=== PATIENT | female | born 1950 | race African-American/Black ===

== ENCOUNTER 2018-12-29 13:48 | Outpatient (CLI) | payer MEDICARE, MEDICAID ==
--- NOTE | 2018-12-29 15:03 | BD ---
EXAM: DEXA bone density examination HISTORY: 68-year-old postmenopausal female for screening COMPARISON: 09/20/2013 FINDINGS: L1--bone mineral density 0.904 g/sq cm; T score -0.8 L2--bone mineral density 1.142 g/sq cm; T score 1.0 L3--bone mineral density 1.036 g/sq cm; T score -0.4 L4--bone mineral density 1.107 g/sq cm; T score 0.4 Total L1-L4--bone mineral density 1.042 g/sq cm; T score 0.0 Left femoral neck--bone mineral density0.914; T score 0.6 Total proximal left femur--bone mineral density 1.184; T score 2.0 IMPRESSION: Normal bone mineral density. Direct comparison with the prior study cannot be performed g iven dissimilar scan types.
--- NOTE | 2019-01-03 17:55 | MMO ---
Bilateral MAMMO Bilat Screen [facility]. CLINICAL HISTORY: Patient is 68 years old and is seen for screening. The patient has a history of right Ultrasound Guided Core Biopsy at age 47 - benign. VIEWS: The views performed were: bilateral craniocaudal with tomosynthesis and bilateral mediolateral oblique with tomosynthesis. FILMS COMPARED: The present examination has been compared to prior imaging studies performed at [facility] on 03/18/2011, 09/19/2013 and 01/10/2016. MAMMOGRAM FINDINGS: There are scattered fibroglandular densities. There are no suspicious masses, suspicious calcifications, or new areas of architectural distortion. IMPRESSION: THERE IS NO MAMMOGRAPHIC EVIDENCE OF MALIGNANCY. A ROUTINE FOLLOW-UP MAMMOGRAM IN 1 YEAR IS RECOMMENDED. THE RESULTS OF THIS EXAM WERE SENT TO THE PATIENT. ACR BI-RADS Category 1 - Negative MAMMOGRAPHY NOTE: 1. A negative mammogram report should not delay a biopsy if a dominant of clinically suspicious mass is present. 2. Approximately 10% to 15% of breast cancers are not detected by mammography. 3. Adenosis and dense breasts may obscure an underlying neoplasm.
== END 2018-12-29 13:49 | disposition home or self-care (01) ==
LOC: BICMAMMO 13:48
PROVIDERS: ATTEND Family Medicine
DX: Z12.31 Encounter for screening mammogram for malignant neoplasm of breast (principal); Z13.820 Encounter for screening for osteoporosis; E89.40 Asymptomatic postprocedural ovarian failure
CPT/HCPCS: 77063; 77067; 77080

== ENCOUNTER 2020-07-23 12:16 | Outpatient (CLI) | payer MEDICARE, MEDICAID ==
[~2020-07-23 12:16] MED LIST: Magnevist 469MG/ML 20 ML VIAL ONE
--- NOTE | 2020-07-23 14:17 | MRI ---
MRI ABDOMEN WITH AND WITHOUT IV CONTRAST: HISTORY: Liver mass right lobe. FINDINGS: Correlation is made with the CT abdomen and pelvis dated 07/15/2020. There are multiple heterogeneously enhancing masses in the right lobe of the liver with T2 hyperinten sity. The largest of these measures 7.45 cm. Liver, spleen, pancreas, adrenal glands, and kidneys a ppear normal. No gallstones are seen. No free fluid or lymphadenopathy is identified. The aorta is of normal caliber. Bone marrow signal is normal. IMPRESSION: Multiple hepatic masses are suspicious for malignancy/metastatic disease. POS: [facility]
== END 2020-07-23 12:17 | disposition home or self-care (01) ==
LOC: BICMRI 12:16
PROVIDERS: ATTEND Family Medicine
DX: R16.0 Hepatomegaly, not elsewhere classified (principal)
CPT/HCPCS: 74183; A9579

== ENCOUNTER 2020-08-31 08:31 | Outpatient (CLI) | payer MEDICARE, MEDICAID ==
--- NOTE | 2020-08-31 10:09 | CT ---
CT CHEST WITH CONTRAST CLINICAL INDICATION: Intrahepatic bile duct carcinoma. COMPARISON: CTA chest on 07/15/2020 FINDINGS: Aorta: Minimal vascular calcifications present. Lungs: Clear without evidence of consolidation or pleural effusion. There is a pleural-based pulmonar y nodule seen in the superior segment right lower lobe which abuts the major fissure. This is best seen on coronal imaging. Minimal atelectasis is seen at the medial aspect right lower lobe. There is linear density and slight pleural based nodularity involving the most superior aspect superior segment right lower lobe which may represent minimal pleural and parenchymal scarring. No pleural effusion is seen. Mediastinum: Trace pericardial effusion is present. The heart remains mildly enlarged. No enlarged mediastinal or hilar lymph nodes are seen by CT size criteria. Thyroid gland: Limited visualized thyroid gland has a normal CT appearance. Osseous structures: Midline defect is seen involving the posterior elements C7 vertebral body which i s developmental in origin. Mild degenerative changes are seen in the spine. No suspicious lytic or sclerotic osseous lesions are identified. Chest wall: No abnormality visualized. Upper abdomen: Multiple heterogeneously enhancing masses are again seen involving the right hepatic l obe conglomeration of mass is present largest mass measures approximately 8.1 cm. There is mild dilatation of a few hepatic lobe bile ducts. Portal vein does appear patent on this exam. No enlarged lymph nodes are seen within the visualized imaged upper abdomen. Small hiatal hernia is present. IMPRESSION: 1. Multiple heterogeneously enhancing masses occupying right hepatic lobe with largest heterogeneous mass measuring approximately 8.1 cm. Finding was previously evaluated with MRI abdomen on 07/23/2020. 2. Single pulmonary nodule superocentrally right lower lobe measuring 6 mm. Follow-up evaluation in 4 months is recommended. 3. Mild cardiomegaly with trace pericardial effusion. 4. Very small hiatal hernia.
[2020-08-31] MEDS ORDERED: Iopamidol 370 76% 100 ML VIAL ONE (11:47)
--- NOTE | 2020-08-31 12:27 | NM ---
WHOLE BODY BONE SCAN: HISTORY: History of intrahepatic bile duct carcinoma RADIOPHARMACEUTICAL: 32.80 mCi technetium 99m-MDP injected intravenously COMPARISON:CTA of the chest dated 07/15/[address] the abdomen and pelvis dated 07/25/2020. Comparison s are also made with a CT of the chest dated August 31, 2020 at 8:53 AM CORRELATION: None FINDINGS: There is degenerative activity involving the sternoclavicular joints, AC joints, thoracic and lumbar spine, SI joints and both hips. There is urinary activity involving the kidneys and bladder. Mild amount of urinary contamination seen in the perineal region. There are photopenic defects at the leve l of the knees consistent with bilateral total knee prostheses. No suspicious scintigraphic evidence for osteoblastic metastatic disease is evident. IMPRESSION: No scintigraphic evidence of osseous metastatic disease.
== END 2020-08-31 08:32 | disposition home or self-care (01) ==
LOC: CT 08:31
PROVIDERS: ATTEND Internal Medicine Hematology & Oncology
DX: C22.1 Intrahepatic bile duct carcinoma (principal); K76.9 Liver disease, unspecified; I51.7 Cardiomegaly; R91.1 Solitary pulmonary nodule; K44.9 Diaphragmatic hernia without obstruction or gangrene
CPT/HCPCS: 71260; 78306; A9503; Q9967

== ENCOUNTER 2020-11-01 15:22 | Outpatient (CLI) | payer MEDICARE, MEDICAID ==
[2020-07-31 02:36] LABS: SARS-CoV-2 PCR by NAA Indeterminate (NotDetected)
[2020-08-01 05:09] LABS: SARS-CoV-2 PCR by NAA DETECTED (NotDetected)
[2020-11-01 16:19] LABS: Anion Gap 16 mmol/L (10-20); BUN (Urea Nitrogen) 9 mg/dL (9.8-20.1); Calc. Creatinine Clearance 0 mL/min (70-130); Calcium 8.1 mg/dL (7.8-10.44); Carbon Dioxide 26 mmol/L (23-31); Chloride 102 mmol/L (98-107); Glucose 84 mg/dL (80-115); Sodium 141 mmol/L (136-145)
[2020-11-01 16:47] LABS: Potassium 2.9 mmol/L (3.5-5.1)
[2020-11-01 18:17] LABS: Hemoglobin 7.7 g/dL (12.0-15.5); Mean Corpuscular Hemoglobin 29.2 pg (27.0-33.0); Mean Corpuscular Volume 88.3 fl (81.6-98.3); Mean Platelet Volume 10.8 fl (7.4-10.4); Platelet Count 40 10x3/uL (150-450); RBC Distribution Width 17.4 % (11.5-14.5); Red Blood Cell (RBC) Count 2.64 10x6/uL (3.90-5.03); White Blood Cell (WBC) Count 14.6 10x3/uL (3.5-10.5)
[2020-11-01 18:32] LABS: Band 10 % (5-11); Lymphocytes 25 % (21-51); Monocytes 4 % (0-10); Neutrophil 61 % (42-75)
[2020-11-01 18:34] LABS: Hypochromia MODERATE=16-30 cells (100X) (0-5/hpf)
[2020-11-01 18:35] LABS: Microcytosis SLIGHT = 6-15 cells (100X) (0-5/hpf)
[2020-11-01 18:36] LABS: Platelet Morphology Comment Appears Decreased
[2020-11-02 01:49] LABS: SARS-CoV-2 PCR by NAA Not Detected (NotDetected)
== END 2020-11-01 15:23 | disposition home or self-care (01) ==
LOC: LABBT 15:22
PROVIDERS: ATTEND Specialist
DX: U07.1 COVID-19 (principal); Z01.818 Encounter for other preprocedural examination; C22.9 Malignant neoplasm of liver, not specified as primary or secondary
CPT/HCPCS: U0003 ×2; U0005 ×2; 80048; 85025; 87635; 93005; 93010

== ENCOUNTER 2020-11-06 08:19 | Day surgery (SDC) | payer MEDICARE, MEDICAID ==
[2020-11-05 13:03] VITALS: BMI 35.5
[2020-11-06] MEDS ORDERED: Acetaminophen 500 MG TAB ONE (09:01)
[2020-11-06] MEDS ORDERED: Ketorolac Tromethamine 30 MG/ML VIAL ONE (09:01)
[2020-11-06 09:02] LABS: Potassium 3.3 mmol/L (3.5-5.1)
[2020-11-06] MEDS ORDERED: Bupivacaine 0.25% HCL 30 ML VIAL ONE (09:37)
[2020-11-06] MEDS ORDERED: Lidocaine 1% w/Epinephrine 1:100K 20 ML VIAL ONE (09:37)
[2020-11-06] MEDS ORDERED: Fentanyl 100 MCG/2 ML VIAL ONE (09:39)
[2020-11-06] MEDS ORDERED: Lidocaine 1% PF 5 ML VIAL ONE (10:00)
[2020-11-06] MEDS ORDERED: PROPOFOL 200 MG/20 ML VIAL ONE (10:00)
[2020-11-06] MEDS ORDERED: PROPOFOL 20 ML ONE (10:24)
[2020-11-06] MEDS ORDERED: Propofol 500 MG/50 ML VIAL ONE (10:24)
== END 2020-11-06 12:00 | disposition home or self-care (01) ==
LOC: SDC 08:19
PROVIDERS: ATTEND Specialist
PROC: 02HV33Z Insertion of Infusion Device into Superior Vena Cava, Percutaneous Approach (ICD-10-PCS; principal; 2020-11-06)
DX: C22.1 Intrahepatic bile duct carcinoma (principal); I10 Essential (primary) hypertension; I25.10 Atherosclerotic heart disease of native coronary artery without angina pectoris; E11.9 Type 2 diabetes mellitus without complications; K21.9 Gastro-esophageal reflux disease without esophagitis; M19.90 Unspecified osteoarthritis, unspecified site; Z79.82 Long term (current) use of aspirin; Z79.84 Long term (current) use of oral hypoglycemic drugs; Z79.899 Other long term (current) drug therapy
CPT/HCPCS: 36561; 71045; 84132; C1788; 36415; J0690; J1642; J1885; J2704; J3010; S0020

== ENCOUNTER 2020-11-07 08:20 | Outpatient (CLI) | payer MEDICARE, MEDICAID ==
[2020-11-07] MEDS ORDERED: Iopamidol-370 76% 500 ML 1 ML ONE (14:49)
== END 2020-11-07 08:21 | disposition home or self-care (01) ==
LOC: BICCT 08:20
PROVIDERS: ATTEND Internal Medicine Hematology & Oncology
DX: C22.1 Intrahepatic bile duct carcinoma (principal)
CPT/HCPCS: 71260; 74177; 80053; 82248; 83615; 83735; 84100; 84550; 85025; Q9967

== ENCOUNTER 2020-11-16 08:15 | Day surgery (SDC) | payer MEDICARE, MEDICAID ==
[2020-11-16] MEDS ORDERED: diphenhydrAMINE 25 MG CAP PO SCH (09:00)
[2020-11-16] MEDS ORDERED: Acetaminophen 500 MG TAB PO SCH (09:00)
[2020-11-16] MEDS ORDERED: Sodium Chloride 0.9% 20 ML ONE ×2 (09:05→12:49)
[2020-11-16] MEDS ORDERED: Furosemide 20 MG/2 ML VIAL SLOW IVP SCH (12:45)
[2020-11-16 16:07] VITALS: TEMP 98.2
[2020-11-16] MEDS ORDERED: cloNIDine 0.2 MG TAB PO SCH (16:15)
[2020-11-16 16:43] VITALS: BP 183/82
== END 2020-11-16 16:44 | disposition home or self-care (01) ==
LOC: ONC/OP 08:15
PROVIDERS: ATTEND Internal Medicine Hematology & Oncology
PROC: 30233N1 Transfusion of Nonautologous Red Blood Cells into Peripheral Vein, Percutaneous Approach (ICD-10-PCS; principal; 2020-11-16)
DX: D64.9 Anemia, unspecified (principal); D69.6 Thrombocytopenia, unspecified
CPT/HCPCS: 36430; 86850; 86900; 86901; 96374; J1642; J1940; P9016; Q0163

== ENCOUNTER 2020-11-24 19:47 | Inpatient (IN) | payer MEDICARE, MEDICAID ==
[2020-11-24 20:36] LABS: ALT (SGPT) 10 U/L (8-55); AST (SGOT) 16 U/L (5-34); Alkaline Phosphatase 127 U/L (40-110); Anion Gap 22 mmol/L (10-20); BUN (Urea Nitrogen) 16 mg/dL (9.8-20.1); Bilirubin, Total 0.8 mg/dL (0.2-1.2); Calc. Creatinine Clearance 0 mL/min (70-130); Calcium 6.8 mg/dL (7.8-10.44); Carbon Dioxide 24 mmol/L (23-31); Chloride 94 mmol/L (98-107); Globulin 3.5 g/dL (2.4-3.5); Glucose 106 mg/dL (80-115); Lipase 23 U/L (8-78); Potassium 3.4 mmol/L (3.5-5.1); Protein, Total 7.5 g/dL (5.8-8.1); Sodium 137 mmol/L (136-145)
[2020-11-24 20:52] LABS: Hemoglobin 8.9 g/dL (12.0-16.0); Mean Corpuscular HGB CONC 34.3 g/dL (32.0-36.0); Mean Corpuscular Hemoglobin 31.9 pg (27.0-31.0); Mean Corpuscular Volume 92.8 fL (78.0-98.0); Mean Platelet Volume 11.3 fL (7.4-10.4); Platelet Count 24 thou/uL (130-400); RBC Distribution Width 15.5 % (11.5-14.5); Red Blood Cell (RBC) Count 2.78 mill/uL (4.20-5.40); White Blood Cell (WBC) Count 8.1 thou/uL (4.8-10.8)
[2020-11-24 20:56] LABS: Band 5 % (5-11); Lymphocytes 55 % (21-51); MDiff Complete? YES; Monocytes 12 % (0-10); Myelocyte 2 % (0-0); Neutrophil 26 % (42-75); Platelet Morphology Comment Appears Decreased
[2020-11-24 21:46] LABS: Bacteria/HPF None Seen HPF (None Seen); Bilirubin Negative (Negative); Blood, Urine Trace (Negative); Clarity Clear (Clear); Glucose, Urine (Dipstick) Normal (Negative); Ketone, Urine Negative (Negative); Leukocyte 250 Leu/uL (Negative); Nitrite Negative (Negative); Protein, Urine (Dipstick) 50 mg/dL (Neg-Trace); RBC/HPF 0-3 HPF (0-3); Squamous Epithelial 0-3 HPF (0-3); WBC/HPF Greater than 50 HPF (0-3); pH, Urine 5.5 (5.0-9.0)
[2020-11-24] MEDS ORDERED: Enoxaparin Sodium 100 MG/ML SYRINGE ONE (22:16)
[2020-11-24] MEDS ORDERED: cefTRIAXone\\ROCEPHIN 1 GM VIAL ONE (22:16)
[2020-11-24] MEDS ORDERED: Ondansetron PF 4 MG/2 ML Vial ONE (23:32)
[2020-11-25] MEDS ORDERED: HYDROcodone/Acetaminophen 5/325 mg Tablet PO PRN (00:36)
[2020-11-25] MEDS ORDERED: Bisacodyl 5 MG TAB PO PRN (00:36)
[2020-11-25] MEDS ORDERED: Acetaminophen 325 MG TAB PO PRN (00:36)
[2020-11-25] MEDS ORDERED: Zolpidem Tartrate 5 MG TAB PO PRN (00:36)
[2020-11-25 00:41] VITALS: BMI 42.8
[2020-11-25] MEDS ORDERED: HumaLOG 300 UNITS/3 ML VIAL SC PRN (00:43)
[2020-11-25] MEDS ORDERED: Ondansetron PF 4 MG/2 ML Vial IVP PRN ×2 (01:00→07:22)
[2020-11-25] MEDS ORDERED: Sodium Chloride 0.9% 1,000 ML IV SCH (01:00)
[2020-11-25] MEDS ORDERED: Ondansetron ODT 4 MG TAB SL PRN (01:00)
[2020-11-25 04:59] LABS: INR-International Normal Ratio 1.2
[2020-11-25 04:59] LABS: Hemoglobin 7.6 g/dL (12.0-16.0); Mean Corpuscular Hemoglobin 31.5 pg (27.0-31.0); Mean Corpuscular Volume 92.6 fL (78.0-98.0); Platelet Count 23 thou/uL (130-400); RBC Distribution Width 15.3 % (11.5-14.5); Red Blood Cell (RBC) Count 2.41 mill/uL (4.20-5.40); White Blood Cell (WBC) Count 8.3 thou/uL (4.8-10.8)
[2020-11-25 05:00] LABS: PTT 42.8 sec (22.9-36.1)
[2020-11-25 05:25] LABS: Band 12 % (5-11); Lymphocytes 37 % (21-51); MDiff Complete? YES; Metamyelocyte 2 % (0-0); Monocytes 20 % (0-10); Myelocyte 5 % (0-0); Neutrophil 24 % (42-75); Platelet Morphology Comment Appears Decreased
[2020-11-25] MEDS: hydrALAZINE 20 MG/ML VIAL SLOW IVP PRN ×2 (06:16→18:51)
[2020-11-25] MEDS ORDERED: Potassium Chloride 20 MEQ TAB PO SCH (07:15)
[2020-11-25 07:17] LABS: ALT (SGPT) Less than 7 U/L (8-55); AST (SGOT) 14 U/L (5-34); Albumin 3.2 g/dL (3.4-4.8); Alkaline Phosphatase 100 U/L (40-110); Anion Gap 14 mmol/L (10-20); BUN (Urea Nitrogen) 13 mg/dL (9.8-20.1); Bilirubin, Total 0.5 mg/dL (0.2-1.2); Calc. Creatinine Clearance 123 mL/min (70-130); Calcium 6.1 mg/dL (7.8-10.44); Carbon Dioxide 26 mmol/L (23-31); Chloride 100 mmol/L (98-107); Glucose 86 mg/dL (80-115); Protein, Total 6.2 g/dL (5.8-8.1); Sodium 137 mmol/L (136-145)
[2020-11-25] MEDS ORDERED: Ondansetron ODT 4 MG TAB PO PRN (07:22)
[2020-11-25] MEDS ORDERED: Metoclopramide HCl 10 MG/2 ML VIAL IVP PRN (07:22)
[2020-11-25] MEDS ORDERED: GUAIFENESIN SF SOLN 200 MG/10 ML UDCUP PO PRN (07:22)
[2020-11-25] MEDS ORDERED: Senokot S 8.6-50 MG TAB PO PRN (07:22)
[2020-11-25] MEDS ORDERED: Cepastat Lozenges 1 LOZ PO PRN (07:22)
[2020-11-25] MEDS ORDERED: Sodium Chloride 0.65% Nasal 44 ML BOT EA NARE PRN (07:22)
[2020-11-25] MEDS ORDERED: Loperamide HCl 2 MG CAP PO PRN (07:22)
[2020-11-25] MEDS ORDERED: diphenhydrAMINE 25 MG CAP PO PRN (07:22)
[2020-11-25] MEDS ORDERED: Calcium Carbonate 500 MG ChewTAB PO PRN (07:22)
[2020-11-25] MEDS ORDERED: Bisacodyl 10 MG SUPP PR PRN (07:22)
[2020-11-25] MEDS: Cyanocobalamin (Vitamin B-12) 1,000 MCG TAB PO SCH (08:32)
[2020-11-25] MEDS: Alogliptin 25 MG TAB PO SCH (08:32)
[2020-11-25] MEDS: Ferrous Sulfate 325 MG TAB PO SCH (08:32)
[2020-11-25] MEDS: Allopurinol 100 MG TAB PO SCH (08:36)
[2020-11-25] MEDS: Multivitamin W/ Minerals 1 TAB PO SCH (08:38)
[2020-11-25] MEDS: metFORMIN 500 MG TAB PO SCH ×2 (08:39→17:04)
[2020-11-25] MEDS: Losartan 25 MG TAB PO SCH (08:39)
[2020-11-25] MEDS: Amlodipine 10 MG TAB PO SCH (08:39)
[2020-11-25] MEDS: Hydrochlorothiazide 25 MG TAB PO SCH (08:40)
[2020-11-25] MEDS: Famotidine 20 MG TAB PO SCH (08:40)
[2020-11-25] MEDS: Cholecalciferol 1,000 UNITS (25 MCG) TAB PO SCH (08:40)
[2020-11-25] MEDS: Folic Acid 1 MG TAB PO SCH (08:40)
[2020-11-25] MEDS ORDERED: Enoxaparin Sodium 100 MG/ML SYRINGE SC SCH ×3 (09:00→14:15)
[2020-11-25] MEDS ORDERED: glipiZIDE 5 MG TAB PO SCH (09:00)
[2020-11-25] MEDS ORDERED: Aspirin 325 mg Enteric Coated Tablet PO SCH (09:00)
[2020-11-25 10:53] LABS: Iron 25 ug/dL (50-170); Iron Binding Capacity, Total 175 mcg/dL (265-497)
[2020-11-25 11:35] LABS: Vitamin B12 Greater than 2000 pg/mL (211-911)
[2020-11-25 12:15] LABS: Ferritin 2133.92 ng/mL (10-291)
[2020-11-25] MEDS: Atorvastatin Calcium 40 MG TAB PO SCH (20:17)
[2020-11-25] MEDS: Atorvastatin Calcium 20 MG TAB PO SCH (20:17)
[2020-11-25] MEDS: cefTRIAXone\\ROCEPHIN 1 GM in Sodium Chloride 0.9% 100 ML IVPB SCH (21:27)
[2020-11-26] MEDS: Enoxaparin Sodium 100 MG/ML SYRINGE SC SCH ×2 (02:06→16:25)
[2020-11-26 07:09] LABS: ALT (SGPT) Less than 7 U/L (8-55); AST (SGOT) 16 U/L (5-34); Albumin 3.2 g/dL (3.4-4.8); Alkaline Phosphatase 107 U/L (40-110); Anion Gap 16 mmol/L (10-20); BUN (Urea Nitrogen) 8 mg/dL (9.8-20.1); Bilirubin, Total 0.5 mg/dL (0.2-1.2); Calc. Creatinine Clearance 117 mL/min (70-130); Calcium 6.1 mg/dL (7.8-10.44); Carbon Dioxide 22 mmol/L (23-31); Chloride 101 mmol/L (98-107); Globulin 3.2 g/dL (2.4-3.5); Glucose 76 mg/dL (80-115); Magnesium Less than 0.6 mg/dL (1.6-2.6); Phosphorus 3.4 mg/dL (2.3-4.7); Potassium 3.1 mmol/L (3.5-5.1); Protein, Total 6.4 g/dL (5.8-8.1); Sodium 136 mmol/L (136-145)
[2020-11-26 07:16] LABS: Hemoglobin 9.1 g/dL (12.0-16.0); Mean Corpuscular HGB CONC 33.6 g/dL (32.0-36.0); Mean Corpuscular Hemoglobin 30.9 pg (27.0-31.0); Mean Platelet Volume 9.7 fL (7.4-10.4); Platelet Count 53 thou/uL (130-400); RBC Distribution Width 15.5 % (11.5-14.5); Red Blood Cell (RBC) Count 2.93 mill/uL (4.20-5.40); White Blood Cell (WBC) Count 18.8 thou/uL (4.8-10.8)
[2020-11-26 07:51] LABS: Band 24 % (5-11); Lymphocytes 27 % (21-51); MDiff Complete? YES; Metamyelocyte 3 % (0-0); Monocytes 13 % (0-10); Myelocyte 2 % (0-0); Neutrophil 31 % (42-75); Platelet Morphology Comment Appears Decreased; Polychromasia SLIGHT = 2-3 cells (100X) (0-2/hpf)
[2020-11-26] MEDS ORDERED: Magnesium Sulfate 4 GM in Sodium Chloride 0.9% 250 ML 250 ML IVPB SCH (08:15)
[2020-11-26] MEDS: Folic Acid 1 MG TAB PO SCH (09:24)
[2020-11-26] MEDS: Multivitamin W/ Minerals 1 TAB PO SCH (09:24)
[2020-11-26] MEDS: Cholecalciferol 1,000 UNITS (25 MCG) TAB PO SCH (09:24)
[2020-11-26] MEDS: Famotidine 20 MG TAB PO SCH (09:24)
[2020-11-26] MEDS: Ferrous Sulfate 325 MG TAB PO SCH (09:25)
[2020-11-26] MEDS: Alogliptin 25 MG TAB PO SCH (09:25)
[2020-11-26] MEDS: Potassium Chloride 20 MEQ TAB PO SCH ×2 (09:26→16:24)
[2020-11-26] MEDS: Calcium Carbonate 500 MG ChewTAB PO SCH ×2 (09:26→20:51)
[2020-11-26] MEDS: Hydrochlorothiazide 25 MG TAB PO SCH (09:27)
[2020-11-26] MEDS: Cyanocobalamin (Vitamin B-12) 1,000 MCG TAB PO SCH (09:27)
[2020-11-26] MEDS: Allopurinol 100 MG TAB PO SCH (09:27)
[2020-11-26] MEDS: Amlodipine 10 MG TAB PO SCH (09:27)
[2020-11-26] MEDS: Losartan 25 MG TAB PO SCH (09:27)
[2020-11-26] MEDS ORDERED: Lidocaine 1% (PF) 30 ML VIAL FS SCH (12:45)
[2020-11-26] MEDS: cefTRIAXone\\ROCEPHIN 1 GM in Sodium Chloride 0.9% 100 ML IVPB SCH (20:51)
[2020-11-26] MEDS: Atorvastatin Calcium 40 MG TAB PO SCH (20:51)
[2020-11-26] MEDS: Atorvastatin Calcium 20 MG TAB PO SCH (20:51)
[2020-11-27] MEDS: Enoxaparin Sodium 100 MG/ML SYRINGE SC SCH ×2 (02:07→16:10)
[2020-11-27 07:08] LABS: Anion Gap 13 mmol/L (10-20); BUN (Urea Nitrogen) 6 mg/dL (9.8-20.1); Calc. Creatinine Clearance 117 mL/min (70-130); Calcium 6.3 mg/dL (7.8-10.44); Carbon Dioxide 26 mmol/L (23-31); Chloride 101 mmol/L (98-107); Glucose 104 mg/dL (80-115); Hemoglobin 9.2 g/dL (12.0-16.0); Magnesium 1.1 mg/dL (1.6-2.6); Mean Corpuscular HGB CONC 33.4 g/dL (32.0-36.0); Mean Corpuscular Volume 92.6 fL (78.0-98.0); Platelet Count 93 thou/uL (130-400); Potassium 3.6 mmol/L (3.5-5.1); RBC Distribution Width 15.8 % (11.5-14.5); Red Blood Cell (RBC) Count 2.96 mill/uL (4.20-5.40); Sodium 136 mmol/L (136-145); White Blood Cell (WBC) Count 23.8 thou/uL (4.8-10.8)
[2020-11-27] MEDS ORDERED: Magnesium Sulfate 4 GM in Sodium Chloride 0.9% 250 ML 250 ML IVPB SCH (07:30)
[2020-11-27] MEDS: Hydrochlorothiazide 25 MG TAB PO SCH (08:25)
[2020-11-27] MEDS: Alogliptin 25 MG TAB PO SCH (08:25)
[2020-11-27] MEDS: Multivitamin W/ Minerals 1 TAB PO SCH (08:26)
[2020-11-27] MEDS: Ferrous Sulfate 325 MG TAB PO SCH (08:27)
[2020-11-27] MEDS: Calcium Carbonate 500 MG ChewTAB PO SCH ×3 (08:27→20:38)
[2020-11-27] MEDS: Famotidine 20 MG TAB PO SCH (08:27)
[2020-11-27] MEDS: Cyanocobalamin (Vitamin B-12) 1,000 MCG TAB PO SCH (08:29)
[2020-11-27] MEDS: Allopurinol 100 MG TAB PO SCH (08:29)
[2020-11-27] MEDS: Cholecalciferol 1,000 UNITS (25 MCG) TAB PO SCH (08:29)
[2020-11-27] MEDS: Amlodipine 10 MG TAB PO SCH (08:30)
[2020-11-27] MEDS: Folic Acid 1 MG TAB PO SCH (08:30)
[2020-11-27] MEDS: Losartan 25 MG TAB PO SCH (08:30)
[2020-11-27 08:44] LABS: Band 23 % (5-11); Eosinophils 1 % (0-10); Lymphocytes 13 % (21-51); MDiff Complete? YES; Metamyelocyte 2 % (0-0); Monocytes 9 % (0-10); Neutrophil 52 % (42-75); Platelet Morphology Comment Appears Decreased; Polychromasia SLIGHT = 2-3 cells (100X) (0-2/hpf)
[2020-11-27] MEDS: hydrALAZINE 20 MG/ML VIAL SLOW IVP PRN (12:35)
[2020-11-27] MEDS: Atorvastatin Calcium 40 MG TAB PO SCH (20:36)
[2020-11-27] MEDS: Atorvastatin Calcium 20 MG TAB PO SCH (20:36)
[2020-11-27] MEDS: cefTRIAXone\\ROCEPHIN 1 GM in Sodium Chloride 0.9% 100 ML IVPB SCH (20:37)
[2020-11-27] MEDS: Polymyxin B Sulf/Trimethoprim 10 ML OPHTH DROPS OP SCH ×2 (21:59)
[2020-11-28] MEDS: Enoxaparin Sodium 100 MG/ML SYRINGE SC SCH ×2 (02:20→14:09)
[2020-11-28] MEDS: Polymyxin B Sulf/Trimethoprim 10 ML OPHTH DROPS OP SCH ×7 (02:21→21:23)
[2020-11-28 05:43] LABS: Anion Gap 15 mmol/L (10-20); BUN (Urea Nitrogen) 10 mg/dL (9.8-20.1); Calc. Creatinine Clearance 110 mL/min (70-130); Calcium 6.7 mg/dL (7.8-10.44); Carbon Dioxide 24 mmol/L (23-31); Chloride 99 mmol/L (98-107); Glucose 128 mg/dL (80-115); Magnesium 1.6 mg/dL (1.6-2.6); Potassium 3.2 mmol/L (3.5-5.1); Sodium 135 mmol/L (136-145)
[2020-11-28 05:59] LABS: Band 27 % (5-11); Hemoglobin 9.2 g/dL (12.0-16.0); Lymphocytes 10 % (21-51); MDiff Complete? YES; Mean Corpuscular HGB CONC 33.8 g/dL (32.0-36.0); Mean Corpuscular Hemoglobin 31.1 pg (27.0-31.0); Mean Corpuscular Volume 92.1 fL (78.0-98.0); Mean Platelet Volume 8.7 fL (7.4-10.4); Monocytes 11 % (0-10); Myelocyte 8 % (0-0); Neutrophil 44 % (42-75); Platelet Count 149 thou/uL (130-400); RBC Distribution Width 15.8 % (11.5-14.5); Red Blood Cell (RBC) Count 2.96 mill/uL (4.20-5.40); White Blood Cell (WBC) Count 29.4 thou/uL (4.8-10.8)
[2020-11-28] MEDS: Famotidine 20 MG TAB PO SCH (09:44)
[2020-11-28] MEDS: Losartan 25 MG TAB PO SCH (09:44)
[2020-11-28] MEDS: Alogliptin 25 MG TAB PO SCH (09:45)
[2020-11-28] MEDS: Multivitamin W/ Minerals 1 TAB PO SCH (09:51)
[2020-11-28] MEDS: Cholecalciferol 1,000 UNITS (25 MCG) TAB PO SCH (09:51)
[2020-11-28] MEDS: Folic Acid 1 MG TAB PO SCH (09:51)
[2020-11-28] MEDS: Hydrochlorothiazide 25 MG TAB PO SCH (09:51)
[2020-11-28] MEDS: Cyanocobalamin (Vitamin B-12) 1,000 MCG TAB PO SCH (09:51)
[2020-11-28] MEDS: Ferrous Sulfate 325 MG TAB PO SCH (09:51)
[2020-11-28] MEDS: Allopurinol 100 MG TAB PO SCH (09:52)
[2020-11-28] MEDS: Amlodipine 10 MG TAB PO SCH (09:52)
[2020-11-28] MEDS: Calcium Carbonate 500 MG ChewTAB PO SCH ×2 (09:53→21:25)
[2020-11-28] MEDS: Atorvastatin Calcium 20 MG TAB PO SCH (21:24)
[2020-11-28] MEDS: Atorvastatin Calcium 40 MG TAB PO SCH (21:24)
[2020-11-28] MEDS: cefTRIAXone\\ROCEPHIN 1 GM in Sodium Chloride 0.9% 100 ML IVPB SCH (21:25)
[2020-11-29] MEDS: Polymyxin B Sulf/Trimethoprim 10 ML OPHTH DROPS OP SCH ×6 (00:12→14:20)
[2020-11-29] MEDS: Enoxaparin Sodium 100 MG/ML SYRINGE SC SCH ×2 (02:53→14:18)
[2020-11-29 06:40] LABS: Hemoglobin 9.1 g/dL (12.0-16.0); Mean Corpuscular HGB CONC 32.7 g/dL (32.0-36.0); Mean Corpuscular Hemoglobin 30.8 pg (27.0-31.0); Mean Corpuscular Volume 94.4 fL (78.0-98.0); Mean Platelet Volume 8.4 fL (7.4-10.4); Platelet Count 206 thou/uL (130-400); Red Blood Cell (RBC) Count 2.94 mill/uL (4.20-5.40); White Blood Cell (WBC) Count 34.2 thou/uL (4.8-10.8)
[2020-11-29 06:50] LABS: Anion Gap 13 mmol/L (10-20); BUN (Urea Nitrogen) 13 mg/dL (9.8-20.1); Calc. Creatinine Clearance 109 mL/min (70-130); Calcium 7.5 mg/dL (7.8-10.44); Carbon Dioxide 25 mmol/L (23-31); Chloride 101 mmol/L (98-107); Glucose 110 mg/dL (80-115); Potassium 3.6 mmol/L (3.5-5.1); Sodium 135 mmol/L (136-145)
[2020-11-29 07:32] LABS: Anisocytosis SLIGHT = 6-15 cells (100X) (0-5/hpf); Band 11 % (5-11); Eosinophils 1 % (0-10); Lymphocytes 12 % (21-51); MDiff Complete? YES; Metamyelocyte 3 % (0-0); Monocytes 8 % (0-10); Myelocyte 7 % (0-0); Neutrophil 58 % (42-75); Platelet Morphology Comment Appears Adequate; Polychromasia SLIGHT = 2-3 cells (100X) (0-2/hpf)
[2020-11-29] MEDS: Calcium Carbonate 500 MG ChewTAB PO SCH (08:59)
[2020-11-29] MEDS: Folic Acid 1 MG TAB PO SCH (09:00)
[2020-11-29] MEDS ORDERED: Famotidine 20 MG TAB PO SCH (09:00)
[2020-11-29] MEDS: Ferrous Sulfate 325 MG TAB PO SCH (09:00)
[2020-11-29] MEDS: Alogliptin 25 MG TAB PO SCH (09:00)
[2020-11-29] MEDS: Cyanocobalamin (Vitamin B-12) 1,000 MCG TAB PO SCH (09:00)
[2020-11-29] MEDS: Multivitamin W/ Minerals 1 TAB PO SCH (09:00)
[2020-11-29] MEDS: Cholecalciferol 1,000 UNITS (25 MCG) TAB PO SCH (09:01)
[2020-11-29] MEDS: Amlodipine 10 MG TAB PO SCH (09:01)
[2020-11-29] MEDS: Allopurinol 100 MG TAB PO SCH (09:01)
[2020-11-29] MEDS: Losartan 25 MG TAB PO SCH (09:02)
[2020-11-29] MEDS: Hydrochlorothiazide 25 MG TAB PO SCH (09:08)
[2020-11-29 15:31] VITALS: BP 150/72; TEMP 98.4
== END 2020-11-29 15:33 | disposition home or self-care (01) | DRG 300 ==
LOC: ERS 19:47 → ONC 23:03
PROVIDERS: ADMIT Student in an Organized Health Care Education/Training Program; ATTEND Hospitalist
PROC: 30233N1 Transfusion of Nonautologous Red Blood Cells into Peripheral Vein, Percutaneous Approach (ICD-10-PCS; principal; 2020-11-25)
DX: I82.411 Acute embolism and thrombosis of right femoral vein (principal); N30.00 Acute cystitis without hematuria; C22.1 Intrahepatic bile duct carcinoma; Z68.41 Body mass index [BMI] 40.0-44.9, adult; D63.8 Anemia in other chronic diseases classified elsewhere; E78.5 Hyperlipidemia, unspecified; E78.00 Pure hypercholesterolemia, unspecified; M19.90 Unspecified osteoarthritis, unspecified site; Z96.653 Presence of artificial knee joint, bilateral; F41.9 Anxiety disorder, unspecified; D69.6 Thrombocytopenia, unspecified; I10 Essential (primary) hypertension; E11.9 Type 2 diabetes mellitus without complications; E87.6 Hypokalemia; E66.01 Morbid (severe) obesity due to excess calories; E79.0 Hyperuricemia without signs of inflammatory arthritis and tophaceous disease; Z95.0 Presence of cardiac pacemaker; Z79.899 Other long term (current) drug therapy; Z79.82 Long term (current) use of aspirin; Z86.73 Personal history of transient ischemic attack (TIA), and cerebral infarction without residual deficits; Z79.84 Long term (current) use of oral hypoglycemic drugs; Z90.710 Acquired absence of both cervix and uterus; Z90.721 Acquired absence of ovaries, unilateral; Z82.49 Family history of ischemic heart disease and other diseases of the circulatory system
CPT/HCPCS: 36415; 36416; 36430; 80048; 80053; 81003; 81015; 82274; 82550; 82607; 82728; 82746; 83540; 83550; 83690; 83735; 83880; 84100; 84484; 85007; 85025; 85027; 85060; 85379; 85610; 85730; 86850; 86900; 86901; 87040; 87070; 87086; 87205; 93005; 93970; 96365; 96372; J0360; J0696; J1642; J1650; J2405; J3475; J3490; J7050; P9016

== ENCOUNTER 2020-12-25 08:54 | Inpatient (IN) | payer MEDICARE, MEDICAID ==
[2020-12-25 10:19] LABS: ALT (SGPT) 11 U/L (8-55); AST (SGOT) 16 U/L (5-34); Albumin 4.1 g/dL (3.4-4.8); Alkaline Phosphatase 145 U/L (40-110); Anion Gap 18 mmol/L (10-20); BUN (Urea Nitrogen) 26 mg/dL (9.8-20.1); Bilirubin, Total 0.9 mg/dL (0.2-1.2); Calc. Creatinine Clearance 0 mL/min (70-130); Calcium 8.8 mg/dL (7.8-10.44); Carbon Dioxide 26 mmol/L (23-31); Chloride 97 mmol/L (98-107); Globulin 3.6 g/dL (2.4-3.5); Glucose 138 mg/dL (80-115); Potassium 3.1 mmol/L (3.5-5.1); Protein, Total 7.7 g/dL (5.8-8.1); Sodium 138 mmol/L (136-145)
[2020-12-25 10:29] LABS: Band 3 % (5-11); Hemoglobin 9.1 g/dL (12.0-16.0); Lymphocytes 13 % (21-51); MDiff Complete? YES; Mean Corpuscular HGB CONC 33.2 g/dL (32.0-36.0); Mean Corpuscular Hemoglobin 31.7 pg (27.0-31.0); Mean Corpuscular Volume 95.4 fL (78.0-98.0); Mean Platelet Volume 10.1 fL (7.4-10.4); Monocytes 2 % (0-10); Neutrophil 82 % (42-75); Ovalocytes SLIGHT = 2-5 cells (100X) (0-1/hpf); Platelet Count 78 thou/uL (130-400); Platelet Morphology Comment Appears Decreased; Polychromasia SLIGHT = 2-3 cells (100X) (0-2/hpf); RBC Distribution Width 16.5 % (11.5-14.5); Red Blood Cell (RBC) Count 2.88 mill/uL (4.20-5.40); Tear Drops SLIGHT = 2-5 cells (100X) (0-1/hpf); White Blood Cell (WBC) Count 19.4 thou/uL (4.8-10.8)
[2020-12-25] MEDS ORDERED: Cefepime 2 GM VIAL ONE (11:48)
[2020-12-25] MEDS ORDERED: Vancomycin 1 GM/200 ML BAG ONE (11:49)
[2020-12-25] MEDS ORDERED: Magnesium 2 GM/50 ML BAG (IN WATER) ONE (12:43)
[2020-12-25] MEDS ORDERED: Potassium Chloride 40 MEQ in Sodium Chloride 0.9% 250 ML 250 ML IVPB SCH (14:30)
[2020-12-25] MEDS ORDERED: Dextrose 50% Abboject 50 ML SYRINGE SLOW IVP PRN (14:30)
[2020-12-25] MEDS ORDERED: Dextrose 5% in Water 1,000 ML IV PRN (14:30)
[2020-12-25] MEDS ORDERED: HumaLOG 300 UNITS/3 ML VIAL SC PRN ×2 (14:30)
[2020-12-25] MEDS ORDERED: Communication Order-Pharmacy FS ONE (15:32)
[2020-12-25] MEDS ORDERED: Ondansetron ODT 4 MG TAB PO PRN (15:37)
[2020-12-25] MEDS ORDERED: HYDROcodone/Acetaminophen 10/325 mg Tablet PO PRN (15:37)
[2020-12-25] MEDS ORDERED: Acetaminophen 325 MG TAB PO PRN (15:37)
[2020-12-25] MEDS ORDERED: HYDROcodone/Acetaminophen 5/325 mg Tablet PO PRN (15:37)
[2020-12-25 17:15] VITALS: BMI 33.5
[2020-12-25 17:35] LABS: Hemoglobin 7.4 g/dL (12.0-16.0); Platelet Count 56 thou/uL (130-400)
[2020-12-25] MEDS: Potassium Chloride 20 MEQ TAB PO SCH (18:18)
[2020-12-25] MEDS: Apixaban 5 MG TAB PO SCH (21:12)
[2020-12-25] MEDS: Magnesium Oxide 400 MG TAB PO SCH (21:12)
[2020-12-26 05:57] LABS: Hemoglobin 6.3 g/dL (12.0-16.0); Mean Corpuscular Volume 96.8 fL (78.0-98.0); Mean Platelet Volume 9.5 fL (7.4-10.4); Platelet Count 48 thou/uL (130-400); RBC Distribution Width 16.2 % (11.5-14.5)
[2020-12-26 06:07] LABS: Anion Gap 7 mmol/L (10-20); BUN (Urea Nitrogen) 25 mg/dL (9.8-20.1); Calc. Creatinine Clearance 69 mL/min (70-130); Calcium 8.2 mg/dL (7.8-10.44); Carbon Dioxide 34 mmol/L (23-31); Chloride 100 mmol/L (98-107); Glucose 107 mg/dL (80-115); Magnesium 1.2 mg/dL (1.6-2.6); Potassium 3.7 mmol/L (3.5-5.1); Sodium 137 mmol/L (136-145)
[2020-12-26 07:09] LABS: Bacteria/HPF None Seen HPF (None Seen); Bilirubin Negative (Negative); Blood, Urine Negative (Negative); Clarity Clear (Clear); Glucose, Urine (Dipstick) Normal (Negative); Ketone, Urine Negative (Negative); Leukocyte 75 Leu/uL (Negative); Nitrite Negative (Negative); Protein, Urine (Dipstick) Negative (Neg-Trace); RBC/HPF 0-3 HPF (0-3); Specific Gravity, Urine 1.014 (1.002-1.036); Squamous Epithelial 0-3 HPF (0-3); Urobilinogen Normal mg/dL (Less than 2); pH, Urine 5.5 (5.0-9.0)
[2020-12-26 07:11] LABS: Urine Culture Reflex Yes Yes
[2020-12-26] MEDS: Potassium Chloride 20 MEQ TAB PO SCH ×2 (09:41→18:42)
[2020-12-26] MEDS: Apixaban 5 MG TAB PO SCH ×2 (09:42→20:21)
[2020-12-26] MEDS: Magnesium Oxide 400 MG TAB PO SCH ×2 (09:42→20:48)
[2020-12-26] MEDS ORDERED: diphenhydrAMINE 50 MG/ML VIAL IVP SCH (11:45)
[2020-12-26] MEDS: Cefepime 2 GM in Sodium Chloride 0.9% 100 ML IVPB SCH (14:33)
[2020-12-26] MEDS ORDERED: Magnesium 2 GM/50 ML 2 GM in Premix Bag 1 BAG IVPB SCH ×2 (15:15→20:00)
[2020-12-26] MEDS: Vancomycin 1.5 GRAM/300 ML BAG 1.5 GM in Premix Bag 1 BAG IVPB SCH (15:55)
[2020-12-26] MEDS ORDERED: Furosemide 40 MG/4 ML VIAL SLOW IVP SCH (19:15)
[2020-12-26 22:03] LABS: Hemoglobin 8.2 g/dL (12.0-16.0)
[2020-12-27 04:24] LABS: Anion Gap 14 mmol/L (10-20); BUN (Urea Nitrogen) 22 mg/dL (9.8-20.1); Calc. Creatinine Clearance 68 mL/min (70-130); Calcium 9.1 mg/dL (7.8-10.44); Carbon Dioxide 30 mmol/L (23-31); Chloride 96 mmol/L (98-107); Glucose 127 mg/dL (80-115); Magnesium 1.4 mg/dL (1.6-2.6); Sodium 136 mmol/L (136-145)
[2020-12-27 04:41] LABS: Hemoglobin 8.5 g/dL (12.0-16.0); Mean Corpuscular HGB CONC 33.2 g/dL (32.0-36.0); Mean Corpuscular Hemoglobin 31.5 pg (27.0-31.0); Mean Corpuscular Volume 94.8 fL (78.0-98.0); Mean Platelet Volume 11.4 fL (7.4-10.4); Platelet Count 31 thou/uL (130-400); RBC Distribution Width 15.9 % (11.5-14.5); Red Blood Cell (RBC) Count 2.68 mill/uL (4.20-5.40); White Blood Cell (WBC) Count 5.5 thou/uL (4.8-10.8)
[2020-12-27 05:37] LABS: Band 13 % (5-11); Eosinophils 2 % (0-10); Lymphocytes 36 % (21-51); MDiff Complete? YES; Neutrophil 49 % (42-75); Platelet Morphology Comment Appears Decreased
[2020-12-27] MEDS: Apixaban 5 MG TAB PO SCH ×2 (09:24→20:20)
[2020-12-27] MEDS: Potassium Chloride 20 MEQ TAB PO SCH ×2 (09:24→18:20)
[2020-12-27] MEDS: Magnesium Oxide 400 MG TAB PO SCH ×2 (09:24→21:29)
[2020-12-27] MEDS ORDERED: Magnesium 2 GM/50 ML 2 GM in Premix Bag 1 BAG IVPB SCH (09:30)
[2020-12-27 13:20] LABS: Vancomycin, Trough 15.5 ug/mL
[2020-12-27] MEDS: Cefepime 2 GM in Sodium Chloride 0.9% 100 ML IVPB SCH (13:22)
[2020-12-27] MEDS: Vancomycin 1.5 GRAM/300 ML BAG 1.5 GM in Premix Bag 1 BAG IVPB SCH (14:06)
[2020-12-27] MEDS ORDERED: Apixaban 5 MG TAB PO SCH (21:00)
[2020-12-28 06:09] LABS: Platelet Count 19 thou/uL (130-400)
[2020-12-28 06:28] LABS: Anion Gap 14 mmol/L (10-20); BUN (Urea Nitrogen) 20 mg/dL (9.8-20.1); Calc. Creatinine Clearance 76 mL/min (70-130); Calcium 8.9 mg/dL (7.8-10.44); Carbon Dioxide 27 mmol/L (23-31); Chloride 98 mmol/L (98-107); Glucose 95 mg/dL (80-115); Magnesium 1.2 mg/dL (1.6-2.6); Potassium 4.1 mmol/L (3.5-5.1); Sodium 135 mmol/L (136-145)
[2020-12-28 06:46] LABS: Eosinophils 1 % (0-10); Hemoglobin 7.8 g/dL (12.0-16.0); Lymphocytes 47 % (21-51); MDiff Complete? YES; Mean Corpuscular Hemoglobin 32.3 pg (27.0-31.0); Mean Corpuscular Volume 95.2 fL (78.0-98.0); Monocytes 1 % (0-10); Neutrophil 51 % (42-75); Platelet Morphology Comment Appears Decreased; RBC Distribution Width 15.6 % (11.5-14.5)
[2020-12-28] MEDS: Potassium Chloride 20 MEQ TAB PO SCH ×2 (08:48→18:18)
[2020-12-28] MEDS: Polyethylene Glycol 3350 17 GM Packet PO SCH (08:48)
[2020-12-28] MEDS: Magnesium Oxide 400 MG TAB PO SCH ×2 (08:48→20:05)
[2020-12-28] MEDS ORDERED: Magnesium 2 GM/50 ML 2 GM in Premix Bag 1 BAG IVPB SCH (09:45)
[2020-12-28] MEDS: Cefepime 2 GM in Sodium Chloride 0.9% 100 ML IVPB SCH (12:46)
[2020-12-28] MEDS: Vancomycin 1.5 GRAM/300 ML BAG 1.5 GM in Premix Bag 1 BAG IVPB SCH (13:27)
[2020-12-28] MEDS ORDERED: hydrALAZINE 20 MG/ML VIAL SLOW IVP PRN (17:18)
[2020-12-28] MEDS ORDERED: Albuterol Sulfate 2.5 mg/3 ml Neb NEB PRN (18:04)
[2020-12-28] MEDS: metFORMIN 500 MG TAB PO SCH (20:06)
[2020-12-28] MEDS: Atorvastatin Calcium 40 MG TAB PO SCH (20:06)
[2020-12-28] MEDS ORDERED: diphenhydrAMINE 50 MG/ML VIAL IVP PRN (22:15)
[2020-12-29 06:27] LABS: Hemoglobin 8.1 g/dL (12.0-16.0); Mean Corpuscular HGB CONC 34.6 g/dL (32.0-36.0); Mean Corpuscular Hemoglobin 32.8 pg (27.0-31.0); Mean Corpuscular Volume 94.8 fL (78.0-98.0); Mean Platelet Volume 9.3 fL (7.4-10.4); Platelet Count 47 thou/uL (130-400); RBC Distribution Width 15.3 % (11.5-14.5); Red Blood Cell (RBC) Count 2.47 mill/uL (4.20-5.40); White Blood Cell (WBC) Count 1.7 thou/uL (4.8-10.8)
[2020-12-29 06:48] LABS: Band 2 % (5-11); Hypochromia SLIGHT = 6-15 cells (100X) (0-5/hpf); Lymphocytes 82 % (21-51); MDiff Complete? YES; Neutrophil 16 % (42-75); Platelet Morphology Comment Appears Decreased
[2020-12-29 07:08] LABS: Anion Gap 12 mmol/L (10-20); BUN (Urea Nitrogen) 23 mg/dL (9.8-20.1); Calc. Creatinine Clearance 61 mL/min (70-130); Calcium 9.2 mg/dL (7.8-10.44); Carbon Dioxide 29 mmol/L (23-31); Chloride 98 mmol/L (98-107); Glucose 123 mg/dL (80-115); Potassium 5.1 mmol/L (3.5-5.1); Sodium 134 mmol/L (136-145)
[2020-12-29] MEDS: Potassium Chloride 20 MEQ TAB PO SCH ×2 (08:54→16:35)
[2020-12-29] MEDS: Allopurinol 300 MG TAB PO SCH (08:54)
[2020-12-29] MEDS: Hydrochlorothiazide 25 MG TAB PO SCH (08:54)
[2020-12-29] MEDS: Magnesium Oxide 400 MG TAB PO SCH ×2 (08:55→20:52)
[2020-12-29] MEDS: Cholecalciferol 1,000 UNITS (25 MCG) TAB PO SCH (08:55)
[2020-12-29] MEDS: metFORMIN 500 MG TAB PO SCH ×2 (08:55→20:52)
[2020-12-29] MEDS: Amlodipine 10 MG TAB PO SCH (08:56)
[2020-12-29] MEDS: Potassium Chloride 10 MEQ TAB PO SCH (08:56)
[2020-12-29] MEDS: Polyethylene Glycol 3350 17 GM Packet PO SCH (08:58)
[2020-12-29] MEDS: Alogliptin 25 MG TAB PO SCH (09:35)
[2020-12-29] MEDS: Losartan 25 MG TAB PO SCH (09:35)
[2020-12-29] MEDS: Cefepime 2 GM in Sodium Chloride 0.9% 100 ML IVPB SCH (11:44)
[2020-12-29 13:52] LABS: Vancomycin, Trough 22.2 ug/mL
[2020-12-29] MEDS: Vancomycin 1.5 GRAM/300 ML BAG 1.5 GM in Premix Bag 1 BAG IVPB SCH (14:50)
[2020-12-29] MEDS: VANCOMYCIN 1.25 GM/250 ML BAG 1.25 GM in Premix Bag 1 BAG IVPB SCH (15:03)
[2020-12-29] MEDS: Atorvastatin Calcium 40 MG TAB PO SCH (20:52)
[2020-12-30] MEDS: Potassium Chloride 20 MEQ TAB PO SCH ×2 (08:29→17:28)
[2020-12-30] MEDS: Potassium Chloride 10 MEQ TAB PO SCH (08:29)
[2020-12-30] MEDS: Magnesium Oxide 400 MG TAB PO SCH ×2 (08:29→20:07)
[2020-12-30] MEDS: Polyethylene Glycol 3350 17 GM Packet PO SCH (08:29)
[2020-12-30] MEDS: Hydrochlorothiazide 25 MG TAB PO SCH (08:29)
[2020-12-30] MEDS: Allopurinol 300 MG TAB PO SCH (08:30)
[2020-12-30] MEDS: metFORMIN 500 MG TAB PO SCH ×2 (08:30→20:07)
[2020-12-30] MEDS: Amlodipine 10 MG TAB PO SCH (08:30)
[2020-12-30] MEDS: Losartan 25 MG TAB PO SCH (08:30)
[2020-12-30] MEDS: Cholecalciferol 1,000 UNITS (25 MCG) TAB PO SCH (08:30)
[2020-12-30] MEDS: Alogliptin 25 MG TAB PO SCH (08:34)
[2020-12-30] MEDS: Cefepime 2 GM in Sodium Chloride 0.9% 100 ML IVPB SCH (11:36)
[2020-12-30 11:55] LABS: Hemoglobin 7.1 g/dL (12.0-16.0); Mean Corpuscular HGB CONC 33.8 g/dL (32.0-36.0); Mean Corpuscular Hemoglobin 32.3 pg (27.0-31.0); Mean Corpuscular Volume 95.7 fL (78.0-98.0); Mean Platelet Volume 11.1 fL (7.4-10.4); Platelet Count 27 thou/uL (130-400); RBC Distribution Width 15.4 % (11.5-14.5); Red Blood Cell (RBC) Count 2.21 mill/uL (4.20-5.40); White Blood Cell (WBC) Count 2.3 thou/uL (4.8-10.8)
[2020-12-30 12:27] LABS: Anisocytosis SLIGHT = 6-15 cells (100X) (0-5/hpf); Band 1 % (5-11); Eosinophils 2 % (0-10); Lymphocytes 81 % (21-51); MDiff Complete? YES; Monocytes 8 % (0-10); Neutrophil 8 % (42-75); Platelet Morphology Comment Appears Decreased; Polychromasia SLIGHT = 2-3 cells (100X) (0-2/hpf)
[2020-12-30] MEDS: VANCOMYCIN 1.25 GM/250 ML BAG 1.25 GM in Premix Bag 1 BAG IVPB SCH (14:22)
[2020-12-30] MEDS: Atorvastatin Calcium 40 MG TAB PO SCH (20:08)
[2020-12-31 06:59] LABS: Anion Gap 16 mmol/L (10-20); BUN (Urea Nitrogen) 19 mg/dL (9.8-20.1); Calc. Creatinine Clearance 70 mL/min (70-130); Calcium 9.1 mg/dL (7.8-10.44); Carbon Dioxide 23 mmol/L (23-31); Chloride 102 mmol/L (98-107); Glucose 81 mg/dL (80-115); Potassium 4.8 mmol/L (3.5-5.1); Sodium 136 mmol/L (136-145)
[2020-12-31 07:12] LABS: Platelet Count 26 thou/uL (130-400)
[2020-12-31] MEDS: Potassium Chloride 10 MEQ TAB PO SCH (09:10)
[2020-12-31] MEDS: Potassium Chloride 20 MEQ TAB PO SCH (09:10)
[2020-12-31] MEDS: Hydrochlorothiazide 25 MG TAB PO SCH (09:10)
[2020-12-31] MEDS: Magnesium Oxide 400 MG TAB PO SCH (09:10)
[2020-12-31] MEDS: Losartan 25 MG TAB PO SCH (09:11)
[2020-12-31] MEDS: Allopurinol 300 MG TAB PO SCH (09:11)
[2020-12-31] MEDS: Cholecalciferol 1,000 UNITS (25 MCG) TAB PO SCH (09:11)
[2020-12-31] MEDS: Amlodipine 10 MG TAB PO SCH (09:11)
[2020-12-31] MEDS: metFORMIN 500 MG TAB PO SCH (09:11)
[2020-12-31] MEDS: Polyethylene Glycol 3350 17 GM Packet PO SCH (09:12)
[2020-12-31] MEDS: Alogliptin 25 MG TAB PO SCH (09:19)
[2020-12-31] MEDS: Cefepime 2 GM in Sodium Chloride 0.9% 100 ML IVPB SCH (12:54)
[2020-12-31 17:36] VITALS: BP 146/75; TEMP 98.1
== END 2020-12-31 18:51 | disposition home or self-care (01) | DRG 988 ==
LOC: SUATTDRO 08:54 → ERS 08:54 → ONC 14:10
PROVIDERS: ADMIT Family Medicine; ATTEND Internal Medicine
PROC: 0U9MXZX Drainage of Vulva, External Approach, Diagnostic (ICD-10-PCS; 2020-12-25)
PROC: 30233N1 Transfusion of Nonautologous Red Blood Cells into Peripheral Vein, Percutaneous Approach (ICD-10-PCS; 2020-12-26)
PROC: 30233R1 Transfusion of Nonautologous Platelets into Peripheral Vein, Percutaneous Approach (ICD-10-PCS; principal; 2020-12-28)
DX: D61.810 Antineoplastic chemotherapy induced pancytopenia (principal); C22.1 Intrahepatic bile duct carcinoma; I82.511 Chronic embolism and thrombosis of right femoral vein; N76.4 Abscess of vulva; Z68.41 Body mass index [BMI] 40.0-44.9, adult; Z96.653 Presence of artificial knee joint, bilateral; F41.9 Anxiety disorder, unspecified; E87.6 Hypokalemia; E83.42 Hypomagnesemia; E11.22 Type 2 diabetes mellitus with diabetic chronic kidney disease; E11.65 Type 2 diabetes mellitus with hyperglycemia; K21.9 Gastro-esophageal reflux disease without esophagitis; I12.9 Hypertensive chronic kidney disease with stage 1 through stage 4 chronic kidney disease, or unspecified chronic kidney disease; J45.909 Unspecified asthma, uncomplicated; G43.909 Migraine, unspecified, not intractable, without status migrainosus; M19.90 Unspecified osteoarthritis, unspecified site; E78.5 Hyperlipidemia, unspecified; E78.00 Pure hypercholesterolemia, unspecified; N18.31 Chronic kidney disease, stage 3a; E66.01 Morbid (severe) obesity due to excess calories; T45.1X5A Adverse effect of antineoplastic and immunosuppressive drugs, initial encounter; Z90.710 Acquired absence of both cervix and uterus; Z90.49 Acquired absence of other specified parts of digestive tract; Z79.01 Long term (current) use of anticoagulants; Z79.84 Long term (current) use of oral hypoglycemic drugs; Z79.82 Long term (current) use of aspirin; Z79.899 Other long term (current) drug therapy; Z85.038 Personal history of other malignant neoplasm of large intestine; Z92.21 Personal history of antineoplastic chemotherapy; Z86.73 Personal history of transient ischemic attack (TIA), and cerebral infarction without residual deficits
CPT/HCPCS: 36415; 36416; 36430; 71045; 80048; 80053; 80202; 81001; 82274; 83735; 84443; 84484; 85014; 85018; 85025; 85049; 86850; 86900; 86901; 87040; 87070; 87086; 87205; 93005; 96365; 96366; 96367; J0692; J1200; J1642; J1940; J3370; J3475; J3480; J3490; J7050; P9016; P9035; Q0162

== ENCOUNTER 2021-01-09 12:43 | Outpatient (CLI) | payer MEDICARE, MEDICAID ==
[~2021-01-09 12:43] MED LIST changes: +Iopamidol-370 76% 500 ML 1 ML ONE; -Magnevist 469MG/ML 20 ML VIAL ONE
== END 2021-01-09 12:44 | disposition home or self-care (01) ==
LOC: BICCT 12:43
PROVIDERS: ATTEND Internal Medicine Hematology & Oncology
DX: C22.1 Intrahepatic bile duct carcinoma (principal); K76.9 Liver disease, unspecified
CPT/HCPCS: 71260; 74177; Q9967

== ENCOUNTER 2021-03-25 07:53 | Observation (INO) | payer MEDICARE, MEDICAID ==
[2021-03-25] MEDS ORDERED: Aspirin 325 MG TAB ONE (08:24)
[2021-03-25 08:27] LABS: #Lymphocytes 3.2 thou/uL (1.20-3.40); #Monocytes 0.4 thou/uL (0.11-0.59); #Neutrophils 4.1 thou/uL (1.40-6.50); %Eosinophils 0.2 % (0.0-10.0); %Lymphocytes 40.9 % (21.0-51.0); %Monocytes 5.4 % (0.0-10.0); %Neutrophils 53.4 % (42.0-75.0); Hemoglobin 9.5 g/dL (12.0-16.0); Mean Corpuscular Hemoglobin 31.3 pg (27.0-31.0); Mean Corpuscular Volume 94.9 fL (78.0-98.0); Mean Platelet Volume 8.1 fL (7.4-10.4); Platelet Count 182 thou/uL (130-400); RBC Distribution Width 16.6 % (11.5-14.5); Red Blood Cell (RBC) Count 3.04 mill/uL (4.20-5.40); White Blood Cell (WBC) Count 7.7 thou/uL (4.8-10.8)
[2021-03-25 08:52] LABS: ALT (SGPT) 9 U/L (8-55); AST (SGOT) 13 U/L (5-34); Albumin 4.2 g/dL (3.4-4.8); Alkaline Phosphatase 112 U/L (40-110); Anion Gap 13 mmol/L (10-20); BUN (Urea Nitrogen) 24 mg/dL (9.8-20.1); Bilirubin, Total 0.5 mg/dL (0.2-1.2); Calc. Creatinine Clearance 0 mL/min (70-130); Carbon Dioxide 25 mmol/L (23-31); Chloride 107 mmol/L (98-107); Globulin 3.3 g/dL (2.4-3.5); Glucose 115 mg/dL (80-115); Potassium 4.2 mmol/L (3.5-5.1); Protein, Total 7.5 g/dL (5.8-8.1); Sodium 141 mmol/L (136-145)
[2021-03-25 09:08] LABS: CKMB 0.4 ng/mL (0-6.6)
[2021-03-25] MEDS ORDERED: Iopamidol-370 76% 500 ML 1 ML ONE (11:05)
[2021-03-25] MEDS ORDERED: Nitroglycerin 0.4 MG TAB (25 Tab Bottle) SL PRN ×2 (11:13→19:28)
[2021-03-25 13:51] LABS: Troponin I 0.018 ng/mL (< 0.028)
[2021-03-25] MEDS ORDERED: Regadenoson 0.4 MG/5 ML SYRINGE ONE (15:13)
[2021-03-25 16:23] LABS: Troponin I 0.037 ng/mL (< 0.028)
[2021-03-25] MEDS ORDERED: HumaLOG 300 UNITS/3 ML VIAL SC PRN (19:28)
[2021-03-25] MEDS ORDERED: Dextrose 50% Abboject 50 ML SYRINGE SLOW IVP PRN (19:28)
[2021-03-25] MEDS ORDERED: Dextrose 5% in Water 1,000 ML IV PRN (19:28)
[2021-03-25] MEDS: hydrALAZINE 20 MG/ML VIAL SLOW IVP PRN (20:15)
[2021-03-25] MEDS: Apixaban 5 MG TAB PO SCH (20:15)
[2021-03-25 22:43] VITALS: BMI 34.3
[2021-03-26] MEDS: Apixaban 5 MG TAB PO SCH (08:32)
[2021-03-26] MEDS: hydrALAZINE 20 MG/ML VIAL SLOW IVP PRN (08:33)
[2021-03-26] MEDS ORDERED: Aspirin 325 mg Enteric Coated Tablet PO SCH ×2 (09:00)
[2021-03-26] MEDS ORDERED: Amlodipine 10 MG TAB PO SCH (09:00)
[2021-03-26] MEDS ORDERED: Atorvastatin Calcium 40 MG TAB PO SCH (09:00)
[2021-03-26] MEDS ORDERED: Alogliptin 25 MG TAB PO SCH (09:00)
[2021-03-26] MEDS ORDERED: glipiZIDE 5 MG TAB PO SCH (09:00)
[2021-03-26 09:06] LABS: SARS-CoV-2 PCR by NAA Not Detected (NotDetected)
[2021-03-26 11:38] VITALS: BP 131/65; TEMP 98.5
== END 2021-03-26 13:35 | disposition home or self-care (01) ==
LOC: ERS 07:53 → ERHOLD 11:59 → 2NO 18:59
PROVIDERS: ADMIT Internal Medicine; ATTEND Internal Medicine
DX: R07.89 Other chest pain (principal); I10 Essential (primary) hypertension; E78.5 Hyperlipidemia, unspecified; J45.909 Unspecified asthma, uncomplicated; E11.9 Type 2 diabetes mellitus without complications; C22.1 Intrahepatic bile duct carcinoma; C79.9 Secondary malignant neoplasm of unspecified site; R91.1 Solitary pulmonary nodule; K21.9 Gastro-esophageal reflux disease without esophagitis; G43.909 Migraine, unspecified, not intractable, without status migrainosus; Z20.822 Contact with and (suspected) exposure to COVID-19; Z79.82 Long term (current) use of aspirin; Z79.84 Long term (current) use of oral hypoglycemic drugs; Z79.01 Long term (current) use of anticoagulants; Z79.899 Other long term (current) drug therapy; Z86.73 Personal history of transient ischemic attack (TIA), and cerebral infarction without residual deficits; Z86.718 Personal history of other venous thrombosis and embolism; Z96.653 Presence of artificial knee joint, bilateral; Z90.710 Acquired absence of both cervix and uterus; Z90.49 Acquired absence of other specified parts of digestive tract
CPT/HCPCS: 71045; 71275; 78452; 80053; 82553; 82962 ×2; 84484 ×2; 85025; 93005; 93017; 96374; 99285; A9500; G0378 ×3; U0003; U0005; 36415; 36416; J0360; J2785; Q9967

== ENCOUNTER 2021-07-03 09:21 | Outpatient (CLI) | payer MEDICARE, MEDICAID ==
[2021-07-03] MEDS ORDERED: Iopamidol-370 76% 500 ML 1 ML ONE (10:29)
== END 2021-07-03 09:22 | disposition home or self-care (01) ==
LOC: BICCT 09:21
PROVIDERS: ATTEND Internal Medicine Hematology & Oncology
DX: C22.1 Intrahepatic bile duct carcinoma (principal)
CPT/HCPCS: 71260; 74177; Q9967

== ENCOUNTER 2021-07-04 15:20 | Outpatient (CLI) | payer MEDICARE, MEDICAID | END 2021-07-04 15:21 | disposition home or self-care (01) | LOC: BICMAMMO 15:20 | PROVIDERS: ATTEND Family Medicine | DX: Z12.31 Encounter for screening mammogram for malignant neoplasm of breast (principal); Z85.05 Personal history of malignant neoplasm of liver; Z91.89 Other specified personal risk factors, not elsewhere classified | CPT/HCPCS: 77063; 77067 ==

== ENCOUNTER 2021-10-29 20:46 | Inpatient (IN) | payer MEDICARE, MEDICAID ==
[2021-10-29] MEDS ORDERED: Piperacillin/Tazobactam 3.375 GM VIAL ONE (21:24)
[2021-10-29 21:31] LABS: Hemoglobin 7.6 g/dL (12.0-16.0); Mean Corpuscular Hemoglobin 30.8 pg (27.0-31.0); Mean Corpuscular Volume 99.6 fL (78.0-98.0); RBC Distribution Width 19.6 % (11.5-14.5); Red Blood Cell (RBC) Count 2.48 mill/uL (4.20-5.40); White Blood Cell (WBC) Count 15.2 thou/uL (4.8-10.8)
[2021-10-29 21:44] LABS: ALT (SGPT) 17 U/L (8-55); AST (SGOT) 54 U/L (5-34); Albumin 2.5 g/dL (3.4-4.8); Alkaline Phosphatase 355 U/L (40-110); Anion Gap 18 mmol/L (10-20); BUN (Urea Nitrogen) 46 mg/dL (9.8-20.1); Bilirubin, Total 1.9 mg/dL (0.2-1.2); Calc. Creatinine Clearance 0 mL/min (70-130); Calcium 9.1 mg/dL (7.8-10.44); Carbon Dioxide 17 mmol/L (23-31); Chloride 109 mmol/L (98-107); Globulin 3.4 g/dL (2.4-3.5); Glucose 105 mg/dL (80-115); Potassium 5.2 mmol/L (3.5-5.1); Protein, Total 5.9 g/dL (5.8-8.1); Sodium 139 mmol/L (136-145)
[2021-10-29 21:52] LABS: Bilirubin Negative (Negative); Blood, Urine Trace (Negative); Clarity Extra Turbid (Clear); Glucose, Urine (Dipstick) Normal (Negative); Ketone, Urine Negative (Negative); Leukocyte Negative Leu/uL (Negative); Nitrite Negative (Negative); Protein, Urine (Dipstick) 100 mg/dL (Neg-Trace); RBC/HPF 0-3 HPF (0-3); Specific Gravity, Urine 1.019 (1.002-1.036); Urobilinogen 3 mg/dL (Less than 2); WBC/HPF 0-3 HPF (0-3); pH, Urine 5.5 (5.0-9.0)
[2021-10-29 21:53] LABS: CKMB 0.2 ng/mL (0-6.6)
[2021-10-29 21:53] LABS: Bacteria/HPF 1+ HPF (None Seen)
[2021-10-29 22:23] LABS: Band 16 % (5-11); Lymphocytes 9 % (21-51); MDiff Complete? YES; Mean Platelet Volume 9.9 fL (7.4-10.4); Monocytes 2 % (0-10); Neutrophil 73 % (42-75); Platelet Count 125 thou/uL (130-400)
[2021-10-29] MEDS ORDERED: Vancomycin 1 GM/200 ML BAG ONE (23:05)
[2021-10-30 00:13] LABS: SARS-CoV-2 NAA Rapid Test Not Detected (NotDetected)
[2021-10-30 00:13] LABS: Lactic Acid 3.1 mmol/L (0.5-2.2)
[2021-10-30] MEDS ORDERED: Acetaminophen 325 MG TAB PO PRN (00:30)
[2021-10-30] MEDS ORDERED: Ondansetron ODT 4 MG TAB SL PRN (00:30)
[2021-10-30] MEDS ORDERED: Ondansetron PF 4 MG/2 ML Vial IVP PRN (00:30)
[2021-10-30] MEDS ORDERED: HumaLOG 300 UNITS/3 ML VIAL SC PRN ×2 (00:35)
[2021-10-30] MEDS ORDERED: Acetaminophen 650 MG Suppository PR PRN (00:35)
[2021-10-30] MEDS ORDERED: Dextrose 5% in Water 1,000 ML IV PRN (00:35)
[2021-10-30] MEDS ORDERED: Dextrose 50% Abboject 50 ML SYRINGE SLOW IVP PRN (00:35)
[2021-10-30] MEDS ORDERED: Norepinephrine 8 MG/0.9% NS 250 ML IVPB SCH ×2 (00:45)
[2021-10-30] MEDS ORDERED: Piperacillin/Tazobactam 3.375 GM in Sodium Chloride 0.9% 100 ML IVPB SCH (01:00)
[2021-10-30] MEDS ORDERED: Sodium Chloride 0.9% 1,000 ML IV SCH (01:15)
[2021-10-30] MEDS: Sodium Chloride 0.9% 1,000 ML IV SCH ×2 (01:19→08:22)
[2021-10-30 01:22] LABS: Troponin I 0.043 ng/mL (< 0.028)
[2021-10-30 01:24] LABS: Anion Gap 16 mmol/L (10-20); BUN (Urea Nitrogen) 42 mg/dL (9.8-20.1); Calc. Creatinine Clearance 85 mL/min (70-130); Calcium 8.3 mg/dL (7.8-10.44); Carbon Dioxide 15 mmol/L (23-31); Chloride 113 mmol/L (98-107); Glucose 113 mg/dL (80-115); Potassium 4.5 mmol/L (3.5-5.1); Sodium 139 mmol/L (136-145)
[2021-10-30 04:17] LABS: Lactic Acid 2.2 mmol/L (0.5-2.2)
[2021-10-30 04:36] LABS: Hemoglobin 7.4 g/dL (12.0-16.0); Mean Corpuscular HGB CONC 30.5 g/dL (32.0-36.0); Mean Corpuscular Hemoglobin 30.3 pg (27.0-31.0); Mean Corpuscular Volume 99.4 fL (78.0-98.0); Platelet Count 121 thou/uL (130-400); RBC Distribution Width 19.1 % (11.5-14.5); Red Blood Cell (RBC) Count 2.43 mill/uL (4.20-5.40); White Blood Cell (WBC) Count 23.1 thou/uL (4.8-10.8)
[2021-10-30 04:46] LABS: Troponin I 0.078 ng/mL (< 0.028)
[2021-10-30 05:25] LABS: Band 14 % (5-11); Lymphocytes 11 % (21-51); MDiff Complete? YES; Monocytes 8 % (0-10); Neutrophil 67 % (42-75); Nucleated RBC 1 % (0)
[2021-10-30] MEDS ORDERED: VANCOMYCIN IVPB PRN (07:29)
[2021-10-30] MEDS ORDERED: Lactated Ringer's 1,000 ML IV SCH ×2 (08:15→16:07)
[2021-10-30] MEDS: Piperacillin/Tazobactam 3.375 GM in Sodium Chloride 0.9% 100 ML IVPB SCH ×2 (08:26→16:25)
[2021-10-30] MEDS ORDERED: Iopamidol 370 76% 100 ML VIAL ONE (08:57)
[2021-10-30] MEDS ORDERED: Enoxaparin Sodium 40 MG/0.4 ML SYRINGE SC SCH (09:00)
[2021-10-30] MEDS ORDERED: Enoxaparin Sodium 80 MG/0.8 ML SYRINGE SC SCH (09:00)
[2021-10-30 11:32] LABS: Lactic Acid 2.3 mmol/L (0.5-2.2)
[2021-10-30] MEDS ORDERED: Norepinephrine 8 MG/0.9% NS 250 ML IVPB PRN (18:34)
[2021-10-30] MEDS: Enoxaparin Sodium 100 MG/ML SYRINGE SC SCH (20:48)
[2021-10-30] MEDS: Sodium Bicarbonate Tab 325 MG TAB PO SCH (20:49)
[2021-10-30] MEDS: Pantoprazole 40 MG VIAL IVP SCH (20:50)
[2021-10-31] MEDS: Piperacillin/Tazobactam 3.375 GM in Sodium Chloride 0.9% 100 ML IVPB SCH ×2 (00:18→08:24)
[2021-10-31 04:24] LABS: #Eosinphils 0.1 thou/uL (0.0-0.7); #Lymphocytes 1.9 thou/uL (1.20-3.40); #Monocytes 1.3 thou/uL (0.11-0.59); %Basophils 0.1 % (0.0-1.0); %Eosinophils 0.7 % (0.0-10.0); %Lymphocytes 14.5 % (21.0-51.0); %Monocytes 9.7 % (0.0-10.0); Hemoglobin 6.6 g/dL (12.0-16.0); Mean Corpuscular HGB CONC 30.6 g/dL (32.0-36.0); Mean Corpuscular Hemoglobin 30.8 pg (27.0-31.0); Platelet Count 103 thou/uL (130-400); RBC Distribution Width 19.1 % (11.5-14.5); Red Blood Cell (RBC) Count 2.16 mill/uL (4.20-5.40); White Blood Cell (WBC) Count 13.3 thou/uL (4.8-10.8)
[2021-10-31 04:52] LABS: Anion Gap 12 mmol/L (10-20); BUN (Urea Nitrogen) 43 mg/dL (9.8-20.1); Calc. Creatinine Clearance 80 mL/min (70-130); Calcium 8.1 mg/dL (7.8-10.44); Carbon Dioxide 19 mmol/L (23-31); Chloride 112 mmol/L (98-107); Glucose 120 mg/dL (80-115); Potassium 3.9 mmol/L (3.5-5.1); Sodium 139 mmol/L (136-145)
[2021-10-31] MEDS: Sodium Bicarbonate Tab 325 MG TAB PO SCH ×2 (08:24→20:47)
[2021-10-31] MEDS: Enoxaparin Sodium 100 MG/ML SYRINGE SC SCH ×2 (09:56→21:04)
[2021-10-31 12:51] VITALS: BMI 37.0
[2021-10-31] MEDS ORDERED: Ondansetron PF 4 MG/2 ML Vial IVP PRN (14:11)
[2021-10-31] MEDS ORDERED: Ondansetron 2MG/ML MDV 8 MG in Sodium Chloride 0.9% 50 ML IVPB PRN (14:12)
[2021-10-31] MEDS ORDERED: Acetaminophen 325 MG TAB PO PRN (14:59)
[2021-10-31] MEDS ORDERED: traMADol HCl 50 MG TAB PO SCH (15:00)
[2021-10-31] MEDS: cefTRIAXone\\ROCEPHIN 2 GM in Sodium Chloride 0.9% 100 ML IVPB SCH (16:47)
[2021-10-31] MEDS ORDERED: traMADol HCl 50 MG TAB PO PRN (17:01)
[2021-10-31] MEDS: Pantoprazole 40 MG VIAL IVP SCH (20:47)
[2021-11-01 04:43] VITALS: TEMP 98.3
[2021-11-01 06:05] LABS: #Basophils 0.1 thou/uL (0.0-0.2); #Eosinphils 0.1 thou/uL (0.0-0.7); #Lymphocytes 2.3 thou/uL (1.20-3.40); #Monocytes 1.7 thou/uL (0.11-0.59); %Basophils 0.5 % (0.0-1.0); %Eosinophils 0.9 % (0.0-10.0); %Lymphocytes 15.2 % (21.0-51.0); %Monocytes 11.2 % (0.0-10.0); %Neutrophils 72.1 % (42.0-75.0); Hemoglobin 8.1 g/dL (12.0-16.0); Mean Corpuscular HGB CONC 31.7 g/dL (32.0-36.0); Mean Corpuscular Hemoglobin 31.3 pg (27.0-31.0); Mean Corpuscular Volume 98.7 fL (78.0-98.0); Mean Platelet Volume 10.4 fL (7.4-10.4); Platelet Count 86 thou/uL (130-400); RBC Distribution Width 18.2 % (11.5-14.5); Red Blood Cell (RBC) Count 2.59 mill/uL (4.20-5.40); White Blood Cell (WBC) Count 15.2 thou/uL (4.8-10.8)
[2021-11-01 06:29] LABS: ALT (SGPT) 14 U/L (8-55); AST (SGOT) 44 U/L (5-34); Albumin 2.1 g/dL (3.4-4.8); Alkaline Phosphatase 278 U/L (40-110); Anion Gap 15 mmol/L (10-20); BUN (Urea Nitrogen) 42 mg/dL (9.8-20.1); Bilirubin, Direct 1.1 mg/dL (0.1-0.3); Bilirubin, Total 1.3 mg/dL (0.2-1.2); Calc. Creatinine Clearance 77 mL/min (70-130); Carbon Dioxide 16 mmol/L (23-31); Chloride 113 mmol/L (98-107); Glucose 93 mg/dL (80-115); Potassium 4.1 mmol/L (3.5-5.1); Sodium 140 mmol/L (136-145)
[2021-11-01] MEDS: Sodium Bicarbonate Tab 325 MG TAB PO SCH (08:04)
[2021-11-01] MEDS: Enoxaparin Sodium 100 MG/ML SYRINGE SC SCH (08:04)
[2021-11-01 08:11] VITALS: BP 117/85
[2021-11-01] MEDS: cefTRIAXone\\ROCEPHIN 2 GM in Sodium Chloride 0.9% 100 ML IVPB SCH (15:25)
== END 2021-11-01 17:50 | disposition hospice, home (50) | DRG 871 ==
LOC: ERS 20:46 → IMCU/EMU 23:01 → CCU 10-30 00:36 → T4-A 10-31 20:20
PROVIDERS: ADMIT Internal Medicine; ATTEND Internal Medicine
PROC: 3E04329 Introduction of Other Anti-infective into Central Vein, Percutaneous Approach (ICD-10-PCS; principal; 2021-10-31)
PROC: 30233N1 Transfusion of Nonautologous Red Blood Cells into Peripheral Vein, Percutaneous Approach (ICD-10-PCS; 2021-10-31)
DX: A41.1 Sepsis due to other specified staphylococcus (principal); Z66 Do not resuscitate; Z20.822 Contact with and (suspected) exposure to COVID-19; Z51.5 Encounter for palliative care; R65.21 Severe sepsis with septic shock; G93.41 Metabolic encephalopathy; C22.1 Intrahepatic bile duct carcinoma; I82.411 Acute embolism and thrombosis of right femoral vein; E87.2 Acidosis; C78.02 Secondary malignant neoplasm of left lung; C78.01 Secondary malignant neoplasm of right lung; C77.2 Secondary and unspecified malignant neoplasm of intra-abdominal lymph nodes; I10 Essential (primary) hypertension; E78.5 Hyperlipidemia, unspecified; E78.00 Pure hypercholesterolemia, unspecified; M19.90 Unspecified osteoarthritis, unspecified site; Z96.653 Presence of artificial knee joint, bilateral; F41.9 Anxiety disorder, unspecified; Z60.2 Problems related to living alone; E11.9 Type 2 diabetes mellitus without complications; J45.909 Unspecified asthma, uncomplicated; E87.5 Hyperkalemia; R77.8 Other specified abnormalities of plasma proteins; D63.8 Anemia in other chronic diseases classified elsewhere; Z86.718 Personal history of other venous thrombosis and embolism; Z90.710 Acquired absence of both cervix and uterus; Z90.49 Acquired absence of other specified parts of digestive tract; Z86.73 Personal history of transient ischemic attack (TIA), and cerebral infarction without residual deficits; Z79.899 Other long term (current) drug therapy; Z79.01 Long term (current) use of anticoagulants; Z95.828 Presence of other vascular implants and grafts
CPT/HCPCS: 36415; 36416; 36430; 51701; 70450; 71045; 74177; 76705; 80048; 80053; 80076; 81003; 81015; 82553; 83605; 83880; 84484; 85025; 86850; 86900; 86901; 87040; 87077; 87086; 87149; 87186; 93005; 94640; 94760; 96365; 96367; C9113; J0696; J1650; J2405; J2543; J3370; J3490; J7030; J7050; J7120; J7620; P9016; Q9967